=== PATIENT | female | born 1985 | race Caucasian/White ===

== ENCOUNTER 2017-09-03 23:06 | Emergency (ER) | payer OTHER ==
[2017-09-04] MEDS: LORAZEPAM 1 MG TAB PO (00:25)
== END 2017-09-04 00:45 | disposition home or self-care (01) ==
LOC: FTE 23:06
DX: F41.9 Anxiety disorder, unspecified (principal); J45.901 Unspecified asthma with (acute) exacerbation
CPT/HCPCS: 81025; 93005; 99283-25